=== PATIENT | female | born 1940 | race Hispanic/Latino ===

== ENCOUNTER 2021-11-16 18:35 | Inpatient (IN) | payer MEDICARE ==
[2021-11-16] MEDS ORDERED: HYDROMORPHONE 1MG/1ML INJ IV PRN (19:00)
[2021-11-16] MEDS: DEXTROSE 5%/0.45% SOD CHL 1,000 ML IV SCH (19:30)
[2021-11-16 19:36] LABS: AMYLASE 97 U/L (25-125); LIPASE 40 U/L (8-78)
[2021-11-16 20:00] VITALS: BP 141/67
[2021-11-16 21:00] VITALS: BP 141/67
[2021-11-17] VITALS (8 sets, daily range): BP systolic 113–141; BP diastolic 57–73
[2021-11-17] MEDS ORDERED: PANTOPRAZOLE SO40 MG PO (02:05)
[2021-11-17] MEDS ORDERED: SPIRONOLACTONE25 MG PO (02:05)
[2021-11-17] MEDS ORDERED: LOSARTAN POTASS25 MG PO (02:05)
[2021-11-17] MEDS ORDERED: [UNRECOGNIZED DRUG - OTHER] PO (02:05)
[2021-11-17] MEDS ORDERED: METOPROLOL TART50 MG PO (02:05)
[2021-11-17] MEDS ORDERED: LASIX20 MG PO (02:05)
[2021-11-17] MEDS ORDERED: [UNRECOGNIZED DRUG - OTHER] PO (02:05)
[2021-11-17] MEDS: DEXTROSE 5%/0.45% SOD CHL 1,000 ML IV SCH ×2 (04:54→15:00)
[2021-11-17 05:05] LABS: BASOPHILS % 0.3 % (0.0-1.0); EOSINOPHILS % 0.3 % (0.0-6.0); LYMPHOCYTES # (AUTO) 0.5 (1.0-3.2); LYMPHOCYTES % 8.9 % (18.0-39.1); MEAN CORPUSCULAR HEMOGLOBIN 31.4 pg (28-32); MEAN CORPUSCULAR HGB CONC 32.3 g/dL (31-35); MEAN CORPUSCULAR VOLUME 97.5 fL (81-99); MONOCYTES # (AUTO) 0.5 (0.2-0.8); MONOCYTES % 8.3 % (4.4-11.3); NEUTROPHILS % 81.9 % (38.7-80.0); PLATELET COUNT 170 x10e3/uL (140-360); RED BLOOD COUNT 3.18 x10e6/uL (3.6-5.1); RED CELL DISTRIBUTION WIDTH 12.9 % (11.7-14.4)
[2021-11-17 05:38] LABS: ALBUMIN 3.2 g/dL (3.5-5.0); ANION GAP 10.7 mmol/L (8-16); CALCIUM 8.6 mg/dL (8.4-10.2); CREATININE, SERUM 1.41 mg/dL (0.57-1.11); POTASSIUM 3.7 mmol/L (3.5-5.1)
[2021-11-17 11:17] LABS: CLARITY,URINE CLEAR (CLEAR); COLOR,URINE YELLOW (YELLOW); KETONES,URINE NEGATIVE (NEGATIVE); LEUKOCYTE ESTERASE ,URINE NEGATIVE (NEGATIVE); NITRITE,URINE NEGATIVE (NEGATIVE); PROTEIN,URINE DIPSTICK 1+ (NEGATIVE); URINE UROBILINOGEN 0.2 mg/dL (0.2 - 1)
[2021-11-17 11:34] LABS: BACTERIA,URINE MODERATE /HPF; EPITHELIAL CELLS,URINE FEW /LPF; RBC,URINE 0-5 /HPF (0-5)
[2021-11-17] MEDS: LEVOFLOXACIN 500MG/D5W 100ML 100 ML IV SCH (18:00)
[2021-11-18] VITALS: BP 122/61
[2021-11-18] MEDS ORDERED: MAGNESIUM HYDROXIDE 30 ML UDC PO ONE (01:00)
[2021-11-18 01:04] LABS: % IRON SATURATION 9 % (15-50); IRON 20 ug/dL (50-170); TOTAL IRON BINDING CAPACITY 211 ug/dL (261-478); TRANSFERRIN 151 mg/dL (180-382)
[2021-11-18] MEDS: DEXTROSE 5%/0.45% SOD CHL 1,000 ML IV SCH ×2 (01:24→12:16)
[2021-11-18 04:00] VITALS: BP 128/64
[2021-11-18 06:35] LABS: BASOPHILS % 0.4 % (0.0-1.0); EOSINOPHILS # (AUTO) 0.1 (0.0-0.4); EOSINOPHILS % 1.6 % (0.0-6.0); HEMOGLOBIN 10.3 g/dL (12.0-16.0); LYMPHOCYTES # (AUTO) 1.1 (1.0-3.2); LYMPHOCYTES % 19.8 % (18.0-39.1); MEAN CORPUSCULAR HGB CONC 31.2 g/dL (31-35); MEAN CORPUSCULAR VOLUME 99.4 fL (81-99); MONOCYTES # (AUTO) 0.6 (0.2-0.8); MONOCYTES % 10.2 % (4.4-11.3); NEUTROPHILS # (AUTO) 3.7 (2.1-6.9); NEUTROPHILS % 67.8 % (38.7-80.0); PLATELET COUNT 164 x10e3/uL (140-360); RED BLOOD COUNT 3.32 x10e6/uL (3.6-5.1); RED CELL DISTRIBUTION WIDTH 12.5 % (11.7-14.4)
[2021-11-18 07:00] LABS: ALBUMIN/GLOBULIN RATIO 0.9 (0.8-2.0); ANION GAP 10.4 mmol/L (8-16); CALCIUM 8.4 mg/dL (8.4-10.2); CREATININE, SERUM 1.13 mg/dL (0.57-1.11); POTASSIUM 3.4 mmol/L (3.5-5.1)
[2021-11-18 07:57] VITALS: BP 142/72
[2021-11-18 08:00] VITALS: BP 142/72
[2021-11-18] MEDS ORDERED: IRON SUCROSE 100 MG in SODIUM CHLORIDE 0.9% 100 ML 100 ML IV SCH (09:00)
[2021-11-18 11:20] VITALS: BP 142/70
[2021-11-18 16:14] VITALS: BP 128/63
[2021-11-18] MEDS: LEVOFLOXACIN 500MG/D5W 100ML 100 ML IV SCH (18:00)
== END 2021-11-18 19:45 | disposition home or self-care (01) | DRG 390 ==
LOC: MED/SURG2 18:35
DX: K56.600 Partial intestinal obstruction, unspecified as to cause (principal); E86.0 Dehydration; D50.9 Iron deficiency anemia, unspecified; Z88.0 Allergy status to penicillin; I12.9 Hypertensive chronic kidney disease with stage 1 through stage 4 chronic kidney disease, or unspecified chronic kidney disease; Z20.822 Contact with and (suspected) exposure to COVID-19; N18.30 Chronic kidney disease, stage 3 unspecified
CPT/HCPCS: 36415; 74019; 74022; 80053; 81001; 82150; 82607; 82746; 83540; 83690; 84466; 85025; 85045; J1756; J1956